=== PATIENT | female | born 1980 ===

== ENCOUNTER 2017-08-28 20:44 | Emergency (ER) | payer OTHER ==
[~2017-08-28] VITALS: Ht 162.6 cm; Wt 63.2 kg
[2017-08-28 20:53] VITALS: Ht 162.6 cm; Wt 63.2 kg
[2017-08-28] MEDS ORDERED: ONDANSETRON (ODT) 4 MG TAB ODT STA (21:51)
[2017-08-28] MEDS ORDERED: LIDOCAINE/MYLANTA 40 ML BTL PO ONE (22:00)
[2017-08-28] MEDS ORDERED: ACETAMINOPHEN 325 MG TAB PO ONE (22:00)
--- NOTE | 2017-08-28 22:00 | ERD ---
ER Documentation Chief Complaint Chief Complaint headache and stomach ache since yesterday- no vomiting now HPI 36-year-old female presents emergency department for multiple complaints including headache, stomach pain since Monday. Stated that she had watery stools yesterday. Vomited a couple of times yesterday but no vomiting today. LMP: 2 weeks ago. with 1 ectopic . Denies that this is the worst headache of her life, head trauma, changes in her vision, blurry vision, neck pain, throat pain, difficulty swallowing, loss of appetite, shoulder pain, chest pain, back pain, changes in bowel or bladder habits, loss of bowel bladder control, hematochezia, vaginal bleeding, vaginal discharge, recent exposure to any illness, trauma, injury, falls, difficulty walking, numbness or tingling sensation, fever, chills. Has past medical history of hypertension/ tachycardia and colitis. Surgical history of appendectomy, cholecystectomy. ROS All systems reviewed and are negative except as per history of present illness. Allergies Allergies: Coded Allergies: metoclopramide (Verified Allergy, Unknown, 08/28/17) prochlorperazine (Verified Allergy, Unknown, 08/28/17) Uncoded Allergies: NSAIDS (Allergy, Unknown, 08/28/17) PMhx/Soc History of Surgery: Yes (APPY, GALLBLADDER) Anesthesia Reaction: No Hx Neurological Disorder: No Hx Respiratory Disorders: No Hx Cardiac Disorders: No Hx Psychiatric Problems: No Hx Miscellaneous Medical Probl: Yes (COLLITIS) Hx Alcohol Use: No Hx Substance Use: No Hx Tobacco Use: No Smoking Status: Never smoker Physical Exam Vitals Vital Signs Date Time Temp Pulse Resp B/P Pulse Ox O2 Delivery O2 Flow Rate FiO2 08/29/17 02:11 99.1 89 20 121/80 98 Room Air 08/28/17 20:53 99.1 101 20 120/77 98 Physical Exam Const: Well-appearing. Not in acute distress. Head: Atraumatic Eyes: Normal Conjunctiva ENT: Normal External Ears, Nose and Mouth. Neck: Full range of motion..~ No meningismus. Resp: Clear to auscultation bilaterally Cardio: Regular rate and rhythm, no murmurs Abd: Soft. Normal bowel sounds. Abdominal tenderness. Skin: No petechiae or rashes Back: No midline or flank tenderness Ext: No cyanosis, or edema Neur: Awake and alert Psych: Normal Mood and Affect Result Diagram: 08/28/17231408/28/17 2315 Results 24 hrs Laboratory Tests Test 08/28/17 22:18 08/28/17 23:15 Urine Color YELLOW Urine Clarity CLEAR Urine pH 8.0 Urine Specific Wallace 1.009 Urine Ketones NEGATIVEmg/dL Urine Nitrite NEGATIVEmg/dL Urine Bilirubin NEGATIVEmg/dL Urine Urobilinogen NEGATIVEmg/dL Urine Leukocyte Esterase 3+Evan/ul Urine Microscopic RBC 2/HPF Urine Microscopic WBC 21/HPF Urine Squamous Epithelial Cells MODERATE/HPF Urine Bacteria MODERATE/HPF Urine Hemoglobin NEGATIVEmg/dL Urine Glucose NEGATIVEmg/dL Urine Total Protein NEGATIVEmg/dl White Blood Count 10.010^3/ul Red Blood Count 3.8710^6/ul Hemoglobin 11.1g/dl Hematocrit 32.6% Mean Corpuscular Volume 84.2fl Mean Corpuscular Hemoglobin 28.7pg Mean Corpuscular Hemoglobin Concent 34.0g/dl Red Cell Distribution Width 14.3% Platelet Count 98627^3/UL Mean Platelet Volume 9.1fl Neutrophils % 72.9% Lymphocytes % 20.4% Monocytes % 5.9% Eosinophils % 0.0% Basophils % 0.4% Nucleated Red Blood Cells % 0.0/100WBC Neutrophils # 7.310^3/ul Lymphocytes # 2.010^3/ul Monocytes # 0.610^3/ul Eosinophils # 0.010^3/ul Basophils # 0.010^3/ul Nucleated Red Blood Cells # 0.010^3/ul Sodium Level 141mmol/L Potassium Level 4.2mmol/L Chloride Level 99mmol/L Carbon Dioxide Level 30mmol/L Anion Gap 16 Blood Urea Nitrogen 10mg/dl Creatinine 0.59mg/dl Glucose Level 96mg/dl Calcium Level 10.3mg/dl Total Bilirubin 0.3mg/dl Direct Bilirubin 0.00mg/dl Indirect Bilirubin 0.3mg/dl Aspartate Amino Transf (AST/SGOT) 29IU/L Alanine Aminotransferase (ALT/SGPT) 22IU/L Alkaline Phosphatase 43IU/L Total Protein 8.9g/dl Albumin 4.9g/dl Globulin 4.00g/dl Albumin/Globulin Ratio 1.22 Amylase Level 69U/L Lipase 122U/L Serum HCG, Qualitative NEGATIVE Current Medications Medications (Trade) Dose Ordered Sig/Rodney Route PRN Reason Start Time Stop Time Status Last Admin Dose Admin Acetaminophen (Tylenol Tab) 650 mg ONCE ONCE PO 08/28/17 22:00 08/28/17 22:04 DC 08/28/17 22:14 Ondansetron HCl (Zofran Odt) 4 mg ONCE STAT ODT 08/28/17 21:51 08/28/17 21:54 DC 08/28/17 22:14 Miscellaneous Medication 40 ml 40 ml ONCE ONCE PO 08/28/17 22:00 08/28/17 22:04 DC 08/28/17 22:14 Lactated Ringer's (Lr) 1,000 ml @ 1,000 mls/hr Q1H ONCE IV 08/28/17 23:00 08/28/17 23:59 DC 08/28/17 23:27 Ondansetron HCl (Zofran Inj) 4 mg ONCE STAT IV 08/28/17 22:47 08/28/17 22:50 DC 08/28/17 23:26 Morphine Sulfate 4 mg 4 mg ONCE STAT IV 08/29/17 00:50 08/29/17 00:51 DC 08/29/17 00:53 Sodium Chloride (NS) 100 ml @ ud STK-MED ONCE .ROUTE 08/29/17 01:50 08/29/17 01:51 DC Iohexol (Omnipaque 300mg/ ml) 150 ml STK-MED ONCE .ROUTE 08/29/17 01:50 08/29/17 01:51 DC Procedures/MDM Differential diagnosis includes but not limited to bowel obstruction versus pancreatitis versus diverticulitis versus diverticulosis versus nephrolithiasis versus hydronephrosis versus ulcerative colitis versus colitis CT of the abdomen and pelvis with IV contrast: Awaiting to be done. Blood works: Reviewed. Urinalysis: 3+ on leukocyte esterase. 21 on urine WBC. Treatment: IV insertion. Zofran IV. Morphine IV. LR IV. 02:00 Patient left signing AGAINST MEDICAL ADVICE. I explained to her the risks of signing AGAINST MEDICAL ADVICE that this could lead to sepsis and but she still insisted to go home AGAINST MEDICAL ADVICE. Hemodynamically stable at this time. Departure Diagnosis: Primary Impression: Left against medical advice ERUM BARRIENTOS Aug 28, 2017 22:00
[2017-08-28] MEDS ORDERED: ONDANSETRON 4 MG INJ IV STA (22:47)
[2017-08-28 22:49] LABS: ADD UMIC YES; UR ASCORBIC ACID NEGATIVE (NEGATIVE); UR BACTERIA MODERATE /HPF (NONE SEEN); UR BILIRUBIN (Dip) NEGATIVE (NEGATIVE); UR BLOOD (Dip) NEGATIVE (NEGATIVE); UR CLARITY CLEAR (CLEAR); UR COLOR YELLOW (YELLOW); UR GLUCOSE (Dip) NEGATIVE (NEGATIVE); UR KETONES (Dip) NEGATIVE (NEGATIVE); UR LEUKOCYTE ESTERASE (Dip) 3+ Leu/ul (NEGATIVE); UR NITRITE (Dip) NEGATIVE (NEGATIVE); UR RBC 2 /HPF (0-5); UR SPECIFIC GRAVITY (Dip) 1.009 (1.003-1.030); UR SQUAMOUS EPITHELIAL CELL MODERATE /HPF (FEW); UR TOTAL PROTEIN (Dip) NEGATIVE (NEGATIVE); UR UROBILINOGEN (Dip) NEGATIVE (NEGATIVE)
[2017-08-28] MEDS ORDERED: LACTATED RINGER'S 1,000 ML IV ONE (23:00)
[2017-08-28 23:38] LABS: BASOPHILS % 0.4 % (0.0-2.0); HEMATOCRIT 32.6 % (37.0-47.0); HEMOGLOBIN 11.1 g/dl (12.0-16.0); LYMPHOCYTES % 20.4 % (15.0-51.0); MEAN CORPUSCULAR HEMOGLOBIN 28.7 pg (29.0-33.0); MEAN CORPUSCULAR VOLUME 84.2 fl (82.0-101.0); MEAN PLATELET VOLUME 9.1 fl (7.4-10.4); MONOCYTE # 0.6 10^3/ul (0.3-0.9); MONOCYTES % 5.9 % (0.0-11.0); NEUTROPHIL # 7.3 10^3/ul (1.6-7.5); NEUTROPHILS % 72.9 % (39.0-77.0); PLATELET COUNT 346 10^3/UL (140-415); RED BLOOD COUNT 3.87 10^6/ul (4.20-5.40); RED CELL DISTRIBUTION WIDTH 14.3 % (11.5-14.5)
[2017-08-29 00:02] LABS: ALBUMIN 4.9 g/dl (3.3-4.9); ALBUMIN/GLOBULIN RATIO 1.22; BILIRUBIN,INDIRECT 0.3 mg/dl (0-1.1); BILIRUBIN,TOTAL 0.3 mg/dl (0.2-1.3); CALCIUM 10.3 mg/dl (8.4-10.2); CREATININE 0.59 mg/dl (0.44-1.00); POTASSIUM 4.2 mmol/L (3.5-5.1); TOTAL PROTEIN 8.9 g/dl (6.1-8.1)
[2017-08-29] MEDS ORDERED: morphine 4 MG/ML VIAL IV STA (00:50)
[2017-08-29] MEDS ORDERED: SOD CHLORIDE 0.9% 100 ML ONE (01:50)
[2017-08-29] MEDS ORDERED: IOHEXOL 300MG/ML 150 ML BTL ONE (01:50)
[2017-08-29 02:11] VITALS: BP 121/80; PULSE 89; RESP 20; TEMP 99.1
== END 2017-08-29 02:13 | disposition left against medical advice (07) ==
LOC: FTE 20:44
DX: R51 Headache (principal); R10.9 Unspecified abdominal pain; R10.2 Pelvic and perineal pain
CPT/HCPCS: 80053; 81001; 82150; 83690; 84703; 85025; 87045; 96374; 96375; J2270; J2405; J7120; Q9967; Z7502; Z7610